=== PATIENT | male | born 1940 | race Caucasian/White ===

== ENCOUNTER 2024-10-31 11:08 | Emergency (ER) | payer MEDICARE ==
[2024-10-31] VITALS (12 sets, daily range): BP systolic 85–148; BP diastolic 54–126
[~2024-10-31] VITALS: Ht 172.7 cm; Wt 86.1 kg
[2024-10-31 13:43] LABS: URINE BLOOD DIPSTICK Large (NEGATIVE); URINE CLARITY Slightly Cloudy; URINE GLUCOSE - DIPSTICK Negative (NEGATIVE); URINE KETONE Negative (NEGATIVE); URINE LEUK ESTERASE Trace (Negative); URINE PROTEIN - DIPSTICK >=300 mg/dL (NEG-TRACE); URINE SPECIFIC GRAVITY 1.025
[2024-10-31 13:51] LABS: URINE COLOR Red; URINE NITRITE - DIPSTICK Positive (Negative)
[2024-10-31 13:55] LABS: URINE RBC >100 RBC/hpf (0-5)
[2024-10-31 13:56] LABS: URINE BACTERIA MODERATE hpf
[2024-10-31] MEDS ORDERED: KEFLEX500 MG PO (14:24)
[2024-11-02] MEDS ORDERED: CIPROFLOXACN250 M1 PO (09:58)
== END 2024-10-31 15:17 | disposition home or self-care (01) ==
LOC: ED 11:08
PROVIDERS: Family Medicine
PROC: 0T2BX0Z Change Drainage Device in Bladder, External Approach (ICD-10-PCS; principal; 2024-10-31)
DX: R31.0 Gross hematuria (principal); N39.0 Urinary tract infection, site not specified; B96.4 Proteus (mirabilis) (morganii) as the cause of diseases classified elsewhere; I10 Essential (primary) hypertension; Z96.0 Presence of urogenital implants; Z86.73 Personal history of transient ischemic attack (TIA), and cerebral infarction without residual deficits

== ENCOUNTER 2024-11-05 09:16 | Emergency (ER) | payer MEDICARE, OTHER ==
[~2024-11-05] VITALS: Ht 172.7 cm; Wt 95.0 kg
[~2024-11-05 09:16] MED LIST: CIPROFLOXACN250 M1 PO; KEFLEX500 MG PO
[2024-11-05 09:34] VITALS: BP 125/73
[2024-11-05] MEDS ORDERED: KETOROLAC TROMETHAMINE 30 MG/ML SDV IV ONE ×2 (09:35→09:45)
[2024-11-05 09:49] VITALS: BP 115/67
[2024-11-05] MEDS ORDERED: KETOROLAC TROMETHAMINE 30 MG/ML SDV IM ONE (09:55)
[2024-11-05 09:58] LABS: BASO% 0.2 % (0-3); EOS% 1.5 % (0-8); HEMATOCRIT 38.6 % (39.0-50.0); HEMOGLOBIN 13.2 g/dl (14.0-18.0); IMMATURE GRANULOCYTES 0.4 % (0.0-5.0); LYMPH% 14.8 % (15-41); MEAN CELL VOLUME 93.2 fL CALC (80.0-100.0); MEAN CORPUSCULAR HGB 31.9 pG CALC (26.0-32.0); MEAN CORPUSCULAR HGB CONC 34.2 g/dL CAL (32.0-36.0); MONO% 10.7 % (2-13); NEUT# 6.2 thou/uL (1.82-7.42); NEUT% 72.4 % (42-76); RED BLOOD COUNT 4.14 mill/uL (4.70-6.10); RED CELL DISTRI WIDTH 13.7 % (11.5-15.5)
[2024-11-05 10:16] LABS: CREATININE 1.6 mg/dL (0.7-1.3); POTASSIUM 3.8 mmol/l (3.5-5.1)
[2024-11-05 10:16] LABS: URINE BILIRUBIN - DIPSTICK Negative (NEGATIVE); URINE BLOOD DIPSTICK Small (NEGATIVE); URINE GLUCOSE - DIPSTICK Negative (NEGATIVE); URINE KETONE Negative (NEGATIVE); URINE LEUK ESTERASE Negative (NEGATIVE); URINE NITRITE - DIPSTICK Negative (Negative); URINE PH 5.5 (4.5-8.0); URINE PROTEIN - DIPSTICK 30 mg/dL (NEG-TRACE); URINE SPECIFIC GRAVITY 1.025; URINE UROBILINOGEN - DIPSTICK 0.2 E.U./dL (0.2)
[2024-11-05 10:17] LABS: URINE COLOR Yellow
[2024-11-05 10:18] LABS: URINE EPITHELIAL CELLS FEW EPI/hpf (0-FEW); URINE MUCUS FEW hpf (NONE-FEW)
[2024-11-05 10:35] VITALS: BP 111/67
[2024-11-05] MEDS ORDERED: METHOCARBAMOL500 MG PO (10:39)
[2024-11-05 10:46] VITALS: BP 111/67
== END 2024-11-05 10:55 | disposition home or self-care (01) ==
LOC: ED 09:16
PROVIDERS: Family Medicine
DX: M54.50 Low back pain, unspecified (principal); I10 Essential (primary) hypertension; Z86.73 Personal history of transient ischemic attack (TIA), and cerebral infarction without residual deficits

== ENCOUNTER 2024-11-15 10:35 | Inpatient (IN) | payer MEDICARE, OTHER ==
[~2024-11-15] VITALS: Ht 172.7 cm; Wt 86.5 kg
[2024-11-15] VITALS (23 sets, daily range): BP systolic 82–149; BP diastolic 49–104
[~2024-11-15 10:35] MED LIST changes: +METHOCARBAMOL500 MG PO
[2024-11-15 11:19] LABS: URINE BLOOD DIPSTICK Moderate (NEGATIVE); URINE GLUCOSE - DIPSTICK Negative (NEGATIVE); URINE KETONE Trace mg/dL (NEGATIVE); URINE PH 5.5 (4.5-8.0); URINE PROTEIN - DIPSTICK >=300 mg/dL (NEG-TRACE); URINE SPECIFIC GRAVITY >=1.030; URINE UROBILINOGEN - DIPSTICK 0.2 E.U./dL (0.2)
[2024-11-15 11:25] LABS: BASO% 0.2 % (0-3); EOS% 1.4 % (0-8); HEMOGLOBIN 13.3 g/dl (14.0-18.0); IMMATURE GRANULOCYTES 0.4 % (0.0-5.0); MEAN CORPUSCULAR HGB 31.6 pG CALC (26.0-32.0); MEAN CORPUSCULAR HGB CONC 31.7 g/dL CAL (32.0-36.0); NEUT# 7.83 thou/uL (1.82-7.42); RED BLOOD COUNT 4.21 mill/uL (4.70-6.10); RED CELL DISTRI WIDTH 13.2 % (11.5-15.5)
[2024-11-15] MEDS ORDERED: SODIUM CHLORIDE 0.9% 1,000 ML IV ONE ×2 (11:25→14:40)
[2024-11-15 11:26] LABS: MEAN CELL VOLUME 99.8 fL CALC (80.0-100.0)
[2024-11-15 11:27] LABS: URINE COLOR Dark yellow; URINE LEUK ESTERASE Small (NEGATIVE); URINE NITRITE - DIPSTICK Positive (Negative)
[2024-11-15 11:30] LABS: URINE BACTERIA FEW hpf
[2024-11-15 11:31] LABS: URINE MUCUS FEW hpf (NONE-FEW)
[2024-11-15 11:32] LABS: URINE HYALINE CAST FEW lpf (NONE-RARE)
[2024-11-15 11:40] LABS: ALBUMIN 4.2 g/dL (3.2-5.0); ALKALINE PHOSPHATASE 91 u/l (38-126); ANION GAP 16 (6-22 (CALC)); BILIRUBIN, TOTAL 1.2 mg/dL (0.2-1.3); BUN 29 mg/dL (8-23); BUN/CREATININE RATIO 15 (12-20 (CALC)); CARBON DIOXIDE 20 mmol/l (22-30); CHLORIDE 110 mmol/l (95-108); CREATININE 1.9 mg/dL (0.7-1.3); ESTIMATED GFR 34 ML/MIN (>=90 (CALC)); POTASSIUM 3.7 mmol/l (3.5-5.1); SGOT/AST 65 u/l (19-48); SODIUM 142 mmol/l (137-146); TOTAL PROTEIN 7.7 g/dL (6.3-8.2)
[2024-11-15] MEDS ORDERED: ALDACTONE25 MG PO (15:44)
[2024-11-15] MEDS ORDERED: BAYER ASPIRIN E81 MG PO (15:45)
[2024-11-15] MEDS ORDERED: GLUCOSAMI11 PO (15:46)
[2024-11-15] MEDS ORDERED: VITAMIN B-121000 MCG PO (15:47)
[2024-11-15] MEDS ORDERED: PROBIOTI3 (15:47)
[2024-11-15] MEDS ORDERED: VITAMIN B-1100 M2 PO (15:48)
[2024-11-15] MEDS ORDERED: ATORVASTATIN CA40 MG PO (15:48)
[2024-11-15] MEDS ORDERED: SODIUM BICARBI650 MG PO (15:49)
[2024-11-15] MEDS ORDERED: TAMSULOSIN0.4 MG PO (15:49)
[2024-11-15] MEDS ORDERED: SODIUM CHLORIDE 0.9% 1,000 ML IV PRN (17:05)
[2024-11-15] MEDS ORDERED: LORazepam 0.5 MG/TAB PO PRN (17:05)
[2024-11-15] MEDS ORDERED: ACETAMINOPHEN 325 MG/TAB PO PRN (17:05)
[2024-11-15] MEDS ORDERED: MAGNESIUM HYDROXIDE 30 ML UDC PO PRN (17:05)
[2024-11-16] VITALS (8 sets, daily range): BP systolic 107–133; BP diastolic 63–82
[2024-11-16] MEDS ORDERED: ASPIRIN EC 81 MG/TAB PO SCH (09:00)
[2024-11-16] MEDS ORDERED: TAMSULOSIN HCL 0.4 MG CAP PO SCH (09:00)
[2024-11-16] MEDS ORDERED: cefTRIAXone SODIUM 2 GM in SODIUM CHLORIDE 0.9% 100 ML IV SCH (12:00)
[2024-11-17] VITALS (8 sets, daily range): BP systolic 105–135; BP diastolic 45–81
[2024-11-17 05:16] LABS: BASO% 0.2 % (0-3); EOS% 2.1 % (0-8); HEMATOCRIT 38.7 % (39.0-50.0); HEMOGLOBIN 12.1 g/dl (14.0-18.0); IMMATURE GRANULOCYTES 0.2 % (0.0-5.0); LYMPH% 16.2 % (15-41); MEAN CELL VOLUME 105.2 fL CALC (80.0-100.0); MEAN CORPUSCULAR HGB 32.9 pG CALC (26.0-32.0); MEAN CORPUSCULAR HGB CONC 31.3 g/dL CAL (32.0-36.0); MONO% 17.4 % (2-13); NEUT# 5.89 thou/uL (1.82-7.42); NEUT% 63.9 % (42-76); RED BLOOD COUNT 3.68 mill/uL (4.70-6.10); RED CELL DISTRI WIDTH 13.2 % (11.5-15.5)
[2024-11-17 05:47] LABS: CREATININE 1.3 mg/dL (0.7-1.3); MAGNESIUM 1.8 mg/dL (1.6-2.3); POTASSIUM 4.1 mmol/l (3.5-5.1)
[2024-11-17 05:49] LABS: ALBUMIN 3.2 g/dL (3.2-5.0); BILIRUBIN, TOTAL 0.7 mg/dL (0.2-1.3); TOTAL PROTEIN 6.1 g/dL (6.3-8.2)
[2024-11-17] MEDS ORDERED: CEFEPIME HYDROCHLORIDE 2 GM in SODIUM CHLORIDE 0.9% 100 ML IV SCH (09:00)
[2024-11-17] MEDS ORDERED: HYDROcodone 5 MG/Acetaminophen 325 MG/COMBO PO PRN (10:10)
[2024-11-18 05:14] VITALS: BP 105/52
[2024-11-18 06:32] VITALS: BP 105/52
[2024-11-18 07:02] LABS: ALBUMIN 2.9 g/dL (3.2-5.0); CREATININE 1.3 mg/dL (0.7-1.3); TOTAL PROTEIN 5.8 g/dL (6.3-8.2)
[2024-11-18 07:08] LABS: BASO% 0.3 % (0-3); EOS% 2.4 % (0-8); HEMOGLOBIN 11.1 g/dl (14.0-18.0); IMMATURE GRANULOCYTES 0.1 % (0.0-5.0); LYMPH% 15.6 % (15-41); MEAN CORPUSCULAR HGB 32.6 pG CALC (26.0-32.0); MEAN CORPUSCULAR HGB CONC 34.3 g/dL CAL (32.0-36.0); MONO% 20.4 % (2-13); NEUT# 4.55 thou/uL (1.82-7.42); NEUT% 61.2 % (42-76); RED BLOOD COUNT 3.41 mill/uL (4.70-6.10)
[2024-11-18 07:11] LABS: HEMATOCRIT 32.4 % (39.0-50.0)
[2024-11-18 07:18] LABS: MAGNESIUM 2.1 mg/dL (1.6-2.3)
[2024-11-18 18:49] VITALS: BP 100/56
[2024-11-18] MEDS ORDERED: IBUPROFEN 600 MG/TAB PO SCH (21:00)
[2024-11-19 04:20] VITALS: BP 101/59
[2024-11-19 06:45] VITALS: BP 119/70
[2024-11-19] MEDS ORDERED: PANTOPRAZOLE SODIUM Sesquihydr 40 MG/TAB PO SCH (09:00)
[2024-11-19 09:02] LABS: BASO% 0.2 % (0-3); EOS% 2.7 % (0-8); HEMATOCRIT 35.5 % (39.0-50.0); HEMOGLOBIN 11.1 g/dl (14.0-18.0); IMMATURE GRANULOCYTES 0.3 % (0.0-5.0); LYMPH% 16.9 % (15-41); MEAN CORPUSCULAR HGB 31.7 pG CALC (26.0-32.0); MEAN CORPUSCULAR HGB CONC 31.3 g/dL CAL (32.0-36.0); MONO% 15.5 % (2-13); NEUT# 4.04 thou/uL (1.82-7.42); NEUT% 64.4 % (42-76); RED BLOOD COUNT 3.5 mill/uL (4.70-6.10); RED CELL DISTRI WIDTH 13.1 % (11.5-15.5)
[2024-11-19 09:15] LABS: MEAN CELL VOLUME 101.4 fL CALC (80.0-100.0)
[2024-11-19 09:22] LABS: ALBUMIN 2.9 g/dL (3.2-5.0); CREATININE 1.3 mg/dL (0.7-1.3); MAGNESIUM 2.1 mg/dL (1.6-2.3); TOTAL PROTEIN 5.8 g/dL (6.3-8.2)
[2024-11-19] MEDS ORDERED: BISACODYL 10 MG SUPP RE PRN (11:00)
[2024-11-19] MEDS ORDERED: LACTATED RINGER'S 1,000 ML IV SCH (17:10)
[2024-11-19 17:44] VITALS: BP 121/52
[2024-11-20 03:51] VITALS: BP 108/43
[2024-11-20 06:07] LABS: BASO% 0.3 % (0-3); EOS% 2.9 % (0-8); HEMATOCRIT 33.7 % (39.0-50.0); HEMOGLOBIN 11.1 g/dl (14.0-18.0); IMMATURE GRANULOCYTES 0.4 % (0.0-5.0); LYMPH% 16.2 % (15-41); MEAN CELL VOLUME 96.6 fL CALC (80.0-100.0); MEAN CORPUSCULAR HGB 31.8 pG CALC (26.0-32.0); MEAN CORPUSCULAR HGB CONC 32.9 g/dL CAL (32.0-36.0); MONO% 18.6 % (2-13); NEUT# 4.17 thou/uL (1.82-7.42); NEUT% 61.6 % (42-76); RED BLOOD COUNT 3.49 mill/uL (4.70-6.10); RED CELL DISTRI WIDTH 13.1 % (11.5-15.5)
[2024-11-20 06:10] LABS: ALBUMIN 2.9 g/dL (3.2-5.0); BILIRUBIN, TOTAL 1.1 mg/dL (0.2-1.3); CREATININE 1.4 mg/dL (0.7-1.3); MAGNESIUM 2.4 mg/dL (1.6-2.3); TOTAL PROTEIN 5.7 g/dL (6.3-8.2)
[2024-11-20 08:02] VITALS: BP 122/59
[2024-11-20 15:40] VITALS: BP 111/60
[2024-11-20 18:35] VITALS: BP 128/66
[2024-11-21 04:09] VITALS: BP 111/50
[2024-11-21 07:00] VITALS: BP 153/51
[2024-11-21] MEDS ORDERED: MIDAZOLAM HCL 2 MG/2 ML VIAL IV PRN (10:35)
[2024-11-21] MEDS ORDERED: CIPROFLOXACN250 M1 PO (11:50)
[2024-11-21] MEDS ORDERED: HYDROCO/APAP1 TA9 PO (11:51)
== END 2024-11-21 15:34 | disposition home health service (06) | DRG 690 ==
LOC: ED 10:35 → ED-I 14:44 → ED 16:07 → MS2 16:08
PROVIDERS: Emergency Medicine; Nurse Practitioner Family; ADMIT Internal Medicine; ATTEND Internal Medicine
DX: N39.0 Urinary tract infection, site not specified (principal); N17.9 Acute kidney failure, unspecified; E87.20 Acidosis, unspecified; F05 Delirium due to known physiological condition; G93.49 Other encephalopathy; E86.0 Dehydration; F03.90 Unspecified dementia, unspecified severity, without behavioral disturbance, psychotic disturbance, mood disturbance, and anxiety; I12.9 Hypertensive chronic kidney disease with stage 1 through stage 4 chronic kidney disease, or unspecified chronic kidney disease; N18.9 Chronic kidney disease, unspecified; R33.9 Retention of urine, unspecified; M51.27 Other intervertebral disc displacement, lumbosacral region; B96.5 Pseudomonas (aeruginosa) (mallei) (pseudomallei) as the cause of diseases classified elsewhere; G62.9 Polyneuropathy, unspecified; D64.9 Anemia, unspecified; Z96.0 Presence of urogenital implants; Z86.73 Personal history of transient ischemic attack (TIA), and cerebral infarction without residual deficits
CPT/HCPCS: J0692; J0696

== ENCOUNTER 2024-11-25 06:39 | Day surgery (SDC) | payer MEDICARE, OTHER ==
[~2024-11-25] VITALS: Ht 172.7 cm; Wt 86.2 kg
[~2024-11-25 06:39] MED LIST changes: +ALDACTONE25 MG PO; +ATORVASTATIN CA40 MG PO; +BAYER ASPIRIN E81 MG PO; +GLUCOSAMI11 PO; +HYDROCO/APAP1 TA9 PO; +PROBIOTI3; +SODIUM BICARBI650 MG PO; +TAMSULOSIN0.4 MG PO; +VITAMIN B-1100 M2 PO; +VITAMIN B-121000 MCG PO
[2024-11-25] MEDS ORDERED: FAMOTIDINE 10MG/ML 2ML SDV IV ONE (07:11)
[2024-11-25] MEDS ORDERED: SODIUM CHLORIDE 0.9% 1,000 ML IV ONE ×2 (07:12→08:55)
[2024-11-25] MEDS ORDERED: Levofloxacin 500 mg Premix 100 ML IV ONE (07:30)
[2024-11-25] MEDS ORDERED: ACETAMINOPHEN 100 ML IV ONE (08:53)
[2024-11-25 09:46] VITALS: BP 113/52
[2024-11-25] MEDS ORDERED: SODIUM CHLORIDE 1,000 ML BTL IR ONE (09:57)
[2024-11-25] MEDS ORDERED: SODIUM CHLORIDE 3,000 ML BAG FOR IRRIGATION IR ONE (09:57)
[2024-11-25] MEDS ORDERED: STERILE WATER FOR IRRIGATION 1,000 ML BTL IR ONE (09:57)
[2024-11-25] MEDS ORDERED: PROPOFOL 200 MG/20 ML VIAL IV ONE (15:04)
[2024-11-25] MEDS ORDERED: LIDOCAINE HCL 2% 2ML SDV IV ONE (15:04)
== END 2024-11-25 10:15 | disposition home or self-care (01) ==
LOC: ORM 06:39
PROVIDERS: ATTEND Urology
PROC: 0VB08ZZ Excision of Prostate, Via Natural or Artificial Opening Endoscopic (ICD-10-PCS; principal; 2024-11-25)
DX: N40.1 Benign prostatic hyperplasia with lower urinary tract symptoms (principal); R33.8 Other retention of urine; N13.8 Other obstructive and reflux uropathy; J43.9 Emphysema, unspecified; N18.31 Chronic kidney disease, stage 3a; I50.9 Heart failure, unspecified; Z86.73 Personal history of transient ischemic attack (TIA), and cerebral infarction without residual deficits
CPT/HCPCS: J0131; J1956

== ENCOUNTER 2024-11-29 16:50 | Inpatient (IN) | payer MEDICARE, OTHER ==
[~2024-11-29] VITALS: Ht 172.7 cm; Wt 83.0 kg
[2024-11-29] VITALS (7 sets, daily range): BP systolic 106–150; BP diastolic 70–114
[2024-11-29 17:24] LABS: BASO% 0.1 % (0-3); EOS% 1.2 % (0-8); HEMATOCRIT 35.1 % (39.0-50.0); HEMOGLOBIN 11.4 g/dl (14.0-18.0); IMMATURE GRANULOCYTES 0.3 % (0.0-5.0); LYMPH% 14.2 % (15-41); MEAN CELL VOLUME 93.9 fL CALC (80.0-100.0); MEAN CORPUSCULAR HGB 30.5 pG CALC (26.0-32.0); MEAN CORPUSCULAR HGB CONC 32.5 g/dL CAL (32.0-36.0); MONO% 14.3 % (2-13); NEUT# 9.05 thou/uL (1.82-7.42); NEUT% 69.9 % (42-76); RED BLOOD COUNT 3.74 mill/uL (4.70-6.10)
[2024-11-29 17:24] LABS: URINE BILIRUBIN - DIPSTICK Negative (NEGATIVE); URINE BLOOD DIPSTICK Moderate (NEGATIVE); URINE COLOR Yellow; URINE GLUCOSE - DIPSTICK Negative (NEGATIVE); URINE KETONE Negative (NEGATIVE); URINE LEUK ESTERASE Trace (NEGATIVE); URINE NITRITE - DIPSTICK Negative (Negative); URINE PROTEIN - DIPSTICK 100 mg/dL (NEG-TRACE); URINE UROBILINOGEN - DIPSTICK 0.2 E.U./dL (0.2)
[2024-11-29 17:25] LABS: URINE RBC 25-50 RBC/hpf (0-5)
[2024-11-29 17:26] LABS: URINE BACTERIA FEW hpf
[2024-11-29 17:28] LABS: ALBUMIN 3.4 g/dL (3.2-5.0); BILIRUBIN, TOTAL 0.7 mg/dL (0.2-1.3); CREATININE 1.3 mg/dL (0.7-1.3); POTASSIUM 4.1 mmol/l (3.5-5.1); TOTAL PROTEIN 6.4 g/dL (6.3-8.2)
[2024-11-29] MEDS ORDERED: LORazepam 2 MG/ML IV ONE (17:50)
[2024-11-29] MEDS ORDERED: MIDAZOLAM HCL 2 MG/2 ML VIAL IV ONE ×3 (18:00→20:00)
[2024-11-29] MEDS ORDERED: ONDANSETRON HCl 4 MG/2 ML SDV IV ONE (19:50)
[2024-11-29] MEDS ORDERED: CLOTRIMAZOLE 1% TOP SCH (22:29)
[2024-11-29] MEDS ORDERED: SODIUM CHLORIDE 0.9% 1,000 ML IV PRN (22:30)
[2024-11-29] MEDS ORDERED: ACETAMINOPHEN 325 MG/TAB PO PRN (22:30)
[2024-11-29] MEDS ORDERED: MAGNESIUM HYDROXIDE 30 ML UDC PO PRN (22:30)
[2024-11-29] MEDS ORDERED: PHENAZOPYRIDINE HCL 100 MG/TAB PO SCH (23:13)
[2024-11-29] MEDS ORDERED: ONDANSETRON HCl 4 MG/2 ML SDV IV PRN (23:15)
[2024-11-29] MEDS ORDERED: MORPHINE SULFATE 4 MG/ML VIAL IV PRN (23:15)
[2024-11-29] MEDS ORDERED: LORazepam 2 MG/ML IV PRN (23:35)
[2024-11-30] VITALS (9 sets, daily range): BP systolic 114–153; BP diastolic 51–118
[2024-11-30 08:12] LABS: BASO% 0.2 % (0-3); EOS% 1.4 % (0-8); HEMOGLOBIN 11.2 g/dl (14.0-18.0); IMMATURE GRANULOCYTES 0.3 % (0.0-5.0); LYMPH% 11.7 % (15-41); MEAN CELL VOLUME 93.2 fL CALC (80.0-100.0); MEAN CORPUSCULAR HGB 30.7 pG CALC (26.0-32.0); MEAN CORPUSCULAR HGB CONC 32.9 g/dL CAL (32.0-36.0); MONO% 13.2 % (2-13); NEUT# 8.1 thou/uL (1.82-7.42); NEUT% 73.2 % (42-76); RED BLOOD COUNT 3.65 mill/uL (4.70-6.10)
[2024-11-30 08:39] LABS: ALBUMIN 3.4 g/dL (3.2-5.0); BILIRUBIN, TOTAL 0.9 mg/dL (0.2-1.3); CREATININE 1.2 mg/dL (0.7-1.3); TOTAL PROTEIN 6.5 g/dL (6.3-8.2)
[2024-11-30] MEDS ORDERED: CEFEPIME HYDROCHLORIDE 1 GM in SODIUM CHLORIDE 0.9% 50 ML IV SCH (09:00)
[2024-11-30] MEDS ORDERED: LACTULOSE 20 GM/30 ML UDC PO PRN (12:15)
[2024-11-30] MEDS ORDERED: TAMSULOSIN HCL 0.4 MG CAP PO SCH (13:00)
[2024-11-30] MEDS ORDERED: ASPIRIN EC 81 MG/TAB PO SCH (13:00)
[2024-11-30] MEDS ORDERED: SPIRONOLACTONE 25 MG/TAB PO SCH (13:00)
[2024-11-30] MEDS ORDERED: ENOXAPARIN SODIUM 40 MG/0.4 ML SYR SC SCH (21:00)
[2024-12-01] VITALS (7 sets, daily range): BP systolic 116–148; BP diastolic 56–80
[2024-12-01 04:40] LABS: BASO% 0.1 % (0-3); EOS% 1.2 % (0-8); HEMATOCRIT 35.6 % (39.0-50.0); HEMOGLOBIN 10.9 g/dl (14.0-18.0); IMMATURE GRANULOCYTES 0.8 % (0.0-5.0); LYMPH% 14.4 % (15-41); MEAN CORPUSCULAR HGB 31.1 pG CALC (26.0-32.0); MEAN CORPUSCULAR HGB CONC 30.6 g/dL CAL (32.0-36.0); MONO% 13.5 % (2-13); NEUT# 7.18 thou/uL (1.82-7.42); RED BLOOD COUNT 3.51 mill/uL (4.70-6.10); RED CELL DISTRI WIDTH 13.3 % (11.5-15.5)
[2024-12-01 04:57] LABS: ALBUMIN 3.2 g/dL (3.2-5.0); BILIRUBIN, TOTAL 0.8 mg/dL (0.2-1.3); CREATININE 1.3 mg/dL (0.7-1.3); MAGNESIUM 2.3 mg/dL (1.6-2.3); POTASSIUM 4.5 mmol/l (3.5-5.1); TOTAL PROTEIN 6.2 g/dL (6.3-8.2)
[2024-12-01 05:02] LABS: MEAN CELL VOLUME 101.4 fL CALC (80.0-100.0)
[2024-12-01] MEDS ORDERED: LACTULOSE 20 GM/30 ML UDC PO SCH (11:00)
[2024-12-02 04:05] VITALS: BP 138/82
[2024-12-02 05:41] LABS: BASO% 0.2 % (0-3); EOS% 1.2 % (0-8); HEMOGLOBIN 10.9 g/dl (14.0-18.0); IMMATURE GRANULOCYTES 0.3 % (0.0-5.0); LYMPH% 12.6 % (15-41); MEAN CELL VOLUME 95.4 fL CALC (80.0-100.0); MEAN CORPUSCULAR HGB 31.5 pG CALC (26.0-32.0); MONO% 14.2 % (2-13); NEUT# 7.61 thou/uL (1.82-7.42); NEUT% 71.5 % (42-76); RED BLOOD COUNT 3.46 mill/uL (4.70-6.10); RED CELL DISTRI WIDTH 12.9 % (11.5-15.5)
[2024-12-02 05:50] VITALS: BP 110/85
[2024-12-02 05:51] LABS: ALBUMIN 3.1 g/dL (3.2-5.0); BILIRUBIN, TOTAL 0.9 mg/dL (0.2-1.3); CREATININE 1.2 mg/dL (0.7-1.3); MAGNESIUM 2.4 mg/dL (1.6-2.3); POTASSIUM 4.3 mmol/l (3.5-5.1); TOTAL PROTEIN 6.1 g/dL (6.3-8.2)
[2024-12-02] MEDS ORDERED: methylPREDNISolone ACETATE 40 MG/ML VIAL IJ ONE (08:50)
[2024-12-02] MEDS ORDERED: LIDOcaine HCl 1% (Local Anesth.) 20 ML VIAL STI SCH (09:10)
[2024-12-02 10:14] VITALS: BP 143/70
[2024-12-02] MEDS ORDERED: ACETAMINOPHEN 500 MG TAB PO SCH (12:00)
[2024-12-02 16:46] VITALS: BP 120/72
[2024-12-02 19:24] VITALS: BP 126/79
[2024-12-03 05:42] VITALS: BP 123/74
[2024-12-03 07:00] VITALS: BP 111/77
[2024-12-03 09:47] LABS: BASO% 0.1 % (0-3); EOS% 0.4 % (0-8); HEMATOCRIT 36.4 % (39.0-50.0); HEMOGLOBIN 11.6 g/dl (14.0-18.0); IMMATURE GRANULOCYTES 0.3 % (0.0-5.0); LYMPH% 12.9 % (15-41); MEAN CELL VOLUME 96.3 fL CALC (80.0-100.0); MEAN CORPUSCULAR HGB 30.7 pG CALC (26.0-32.0); MEAN CORPUSCULAR HGB CONC 31.9 g/dL CAL (32.0-36.0); MONO% 11.5 % (2-13); NEUT# 8.76 thou/uL (1.82-7.42); NEUT% 74.8 % (42-76); RED BLOOD COUNT 3.78 mill/uL (4.70-6.10); RED CELL DISTRI WIDTH 12.8 % (11.5-15.5)
[2024-12-03 09:54] LABS: ALBUMIN 3.2 g/dL (3.2-5.0); BILIRUBIN, TOTAL 0.9 mg/dL (0.2-1.3); MAGNESIUM 2.5 mg/dL (1.6-2.3); POTASSIUM 4.3 mmol/l (3.5-5.1); TOTAL PROTEIN 6.5 g/dL (6.3-8.2)
[2024-12-03] MEDS ORDERED: predniSONE 10 MG/TAB PO SCH (13:00)
[2024-12-03 16:00] VITALS: BP 104/50
[2024-12-03 16:03] VITALS: BP 104/50
[2024-12-03 20:27] VITALS: BP 137/51
[2024-12-03] MEDS ORDERED: GABAPENTIN 100 MG/CAP PO SCH (21:00)
[2024-12-04 04:24] VITALS: BP 134/99
[2024-12-04 05:20] LABS: HEMATOCRIT 32.9 % (39.0-50.0); HEMOGLOBIN 10.6 g/dl (14.0-18.0); MEAN CELL VOLUME 95.1 fL CALC (80.0-100.0); MEAN CORPUSCULAR HGB 30.6 pG CALC (26.0-32.0); MEAN CORPUSCULAR HGB CONC 32.2 g/dL CAL (32.0-36.0); RED BLOOD COUNT 3.46 mill/uL (4.70-6.10)
[2024-12-04 05:27] LABS: ALBUMIN 2.9 g/dL (3.2-5.0); BILIRUBIN, TOTAL 0.6 mg/dL (0.2-1.3); CREATININE 1.2 mg/dL (0.7-1.3); MAGNESIUM 2.6 mg/dL (1.6-2.3); POTASSIUM 4.7 mmol/l (3.5-5.1); TOTAL PROTEIN 5.9 g/dL (6.3-8.2)
[2024-12-04 06:55] VITALS: BP 118/64
[2024-12-04 07:00] VITALS: BP 118/64
[2024-12-04] MEDS ORDERED: ATIVAN0.5 MG PO (09:36)
[2024-12-04] MEDS ORDERED: GABAPENTIN100 MG PO (09:36)
[2024-12-04] MEDS ORDERED: HYDROCO/APAP1 TA9 PO (09:36)
[2024-12-04] MEDS ORDERED: PREDNISONE10 MG PO (09:36)
== END 2024-12-04 11:00 | DRG 690 ==
LOC: ED 16:50 → MS2 22:26
PROVIDERS: Family Medicine; Nurse Practitioner Family; ADMIT Internal Medicine; ATTEND Internal Medicine
PROC: 3E0U33Z Introduction of Anti-inflammatory into Joints, Percutaneous Approach (ICD-10-PCS; principal; 2024-12-02)
DX: N39.0 Urinary tract infection, site not specified (principal); F03.911 Unspecified dementia, unspecified severity, with agitation; N48.1 Balanitis; I12.9 Hypertensive chronic kidney disease with stage 1 through stage 4 chronic kidney disease, or unspecified chronic kidney disease; N18.9 Chronic kidney disease, unspecified; K59.00 Constipation, unspecified; N40.1 Benign prostatic hyperplasia with lower urinary tract symptoms; R33.8 Other retention of urine; M35.3 Polymyalgia rheumatica; M70.61 Trochanteric bursitis, right hip; B96.5 Pseudomonas (aeruginosa) (mallei) (pseudomallei) as the cause of diseases classified elsewhere; Z86.73 Personal history of transient ischemic attack (TIA), and cerebral infarction without residual deficits; Z96.0 Presence of urogenital implants; Z98.890 Other specified postprocedural states
CPT/HCPCS: J0692; J0696; J1650; J2405

== ENCOUNTER 2024-12-14 14:58 | Emergency (ER) | payer MEDICARE, OTHER ==
[~2024-12-14] VITALS: Ht 172.7 cm; Wt 58.0 kg
[2024-12-14] VITALS (8 sets, daily range): BP systolic 99–128; BP diastolic 44–93
[~2024-12-14 14:58] MED LIST changes: +ATIVAN0.5 MG PO; +GABAPENTIN100 MG PO; +PREDNISONE10 MG PO
[2024-12-14] MEDS ORDERED: HYDROcodone/Acetaminophen 1 COMBO TAB PO ONE (15:15)
[2024-12-14 16:08] LABS: EOS% 0.1 % (0-8); IMMATURE GRANULOCYTES 0.6 % (0.0-5.0); LYMPH% 6.5 % (15-41); MEAN CELL VOLUME 94.9 fL CALC (80.0-100.0); MEAN CORPUSCULAR HGB 29.8 pG CALC (26.0-32.0); MEAN CORPUSCULAR HGB CONC 31.4 g/dL CAL (32.0-36.0); MONO% 5.9 % (2-13); NEUT# 13.21 thou/uL (1.82-7.42); NEUT% 86.9 % (42-76); RED BLOOD COUNT 4.73 mill/uL (4.70-6.10); RED CELL DISTRI WIDTH 14.1 % (11.5-15.5)
[2024-12-14 16:09] LABS: HEMATOCRIT 44.9 % (39.0-50.0); HEMOGLOBIN 14.1 g/dl (14.0-18.0)
[2024-12-14 16:21] LABS: BILIRUBIN, TOTAL 0.8 mg/dL (0.2-1.3); CREATININE 1.7 mg/dL (0.7-1.3); POTASSIUM 4.1 mmol/l (3.5-5.1)
[2024-12-14 16:23] LABS: ALBUMIN 4.4 g/dL (3.2-5.0); TOTAL PROTEIN 8.4 g/dL (6.3-8.2)
[2024-12-14 16:52] LABS: URINE BILIRUBIN - DIPSTICK Negative (NEGATIVE); URINE BLOOD DIPSTICK Large (NEGATIVE); URINE GLUCOSE - DIPSTICK Negative (NEGATIVE); URINE KETONE Trace mg/dL (NEGATIVE); URINE PH 5.5 (4.5-8.0); URINE PROTEIN - DIPSTICK 100 mg/dL (NEG-TRACE); URINE SPECIFIC GRAVITY >=1.030; URINE UROBILINOGEN - DIPSTICK 0.2 E.U./dL (0.2)
[2024-12-14 16:59] LABS: URINE COLOR Yellow; URINE LEUK ESTERASE Small (NEGATIVE); URINE NITRITE - DIPSTICK Positive (Negative)
[2024-12-14 17:01] LABS: URINE WBC >100 WBC/hpf (0-5)
[2024-12-14 17:02] LABS: URINE BACTERIA MANY hpf; URINE YEAST MODERATE hpf
[2024-12-14] MEDS ORDERED: CEFEPIME HYDROCHLORIDE 2 GM in SODIUM CHLORIDE 0.9% 100 ML IV ONE (17:10)
[2024-12-14] MEDS ORDERED: MIDAZOLAM HCL 2 MG/2 ML VIAL IV ONE ×3 (17:40→18:30)
[2024-12-14] MEDS ORDERED: MIDAZOLAM HCL 2 MG/2 ML VIAL ONE (17:46)
[2024-12-14] MEDS ORDERED: CEPHALEXIN500 M1 PO (19:05)
== END 2024-12-14 19:05 ==
LOC: ED 14:58
PROVIDERS: Family Medicine
DX: N39.0 Urinary tract infection, site not specified (principal); B95.2 Enterococcus as the cause of diseases classified elsewhere; R09.02 Hypoxemia; I12.9 Hypertensive chronic kidney disease with stage 1 through stage 4 chronic kidney disease, or unspecified chronic kidney disease; N18.9 Chronic kidney disease, unspecified; Z86.73 Personal history of transient ischemic attack (TIA), and cerebral infarction without residual deficits; F03.911 Unspecified dementia, unspecified severity, with agitation; Z96.0 Presence of urogenital implants; Z98.890 Other specified postprocedural states; Z66 Do not resuscitate
CPT/HCPCS: J0692

== ENCOUNTER 2024-12-16 12:26 | Observation (INO) | payer MEDICARE, OTHER ==
[2024-12-16] VITALS (31 sets, daily range): BP systolic 62–169; BP diastolic 43–133
[~2024-12-16] VITALS: Ht 172.7 cm; Wt 81.2 kg
[~2024-12-16 12:26] MED LIST changes: +CEPHALEXIN500 M1 PO
[2024-12-16] MEDS ORDERED: MIDAZOLAM HCL 2 MG/2 ML VIAL IV ONE (12:50)
[2024-12-16 13:05] LABS: BASO% 0.1 % (0-3); EOS% 0.1 % (0-8); HEMATOCRIT 45.8 % (39.0-50.0); HEMOGLOBIN 14.6 g/dl (14.0-18.0); IMMATURE GRANULOCYTES 0.6 % (0.0-5.0); LYMPH% 6.9 % (15-41); MEAN CELL VOLUME 94.6 fL CALC (80.0-100.0); MEAN CORPUSCULAR HGB 30.2 pG CALC (26.0-32.0); MEAN CORPUSCULAR HGB CONC 31.9 g/dL CAL (32.0-36.0); MONO% 8.2 % (2-13); NEUT# 14.95 thou/uL (1.82-7.42); NEUT% 84.1 % (42-76); RED BLOOD COUNT 4.84 mill/uL (4.70-6.10); RED CELL DISTRI WIDTH 14.1 % (11.5-15.5)
[2024-12-16 13:18] LABS: ALBUMIN 4.1 g/dL (3.2-5.0); CREATININE 1.6 mg/dL (0.7-1.3); TOTAL PROTEIN 7.6 g/dL (6.3-8.2)
[2024-12-16 13:19] LABS: POTASSIUM 5.1 mmol/l (3.5-5.1)
[2024-12-16] MEDS ORDERED: Heparin SODIUM (Porcine) 500 ML IV ONE (13:30)
[2024-12-16] MEDS ORDERED: Heparin SODIUM (Porcine) 5,000 UNITS/ML SDV IV ONE (13:30)
[2024-12-16] MEDS ORDERED: AZITHROMYCIN 500 MG in SODIUM CHLORIDE 0.9% 500 ML IV ONE (14:35)
[2024-12-16] MEDS ORDERED: cefTRIAXone SODIUM 2 GM in SODIUM CHLORIDE 0.9% 100 ML IV ONE (14:35)
[2024-12-16] MEDS ORDERED: methylPREDNISolone SODIUM SUCC 125 MG/2 ML SDV IV ONE (14:35)
[2024-12-16] MEDS ORDERED: LOVENOX40 MG/0.4 SC (14:57)
[2024-12-16] MEDS ORDERED: SEROQUEL25 MG PO (14:59)
[2024-12-16] MEDS ORDERED: VITAMIN B-1100 M2 PO (15:00)
[2024-12-16] MEDS ORDERED: DEPAKOTE125 MG PO (15:01)
[2024-12-16] MEDS ORDERED: NEURONTIN100 MG PO (15:02)
[2024-12-16] MEDS ORDERED: SENNA/DSS1 TAB PO (15:03)
[2024-12-16] MEDS ORDERED: KEFLEX500 MG PO (15:03)
[2024-12-16] MEDS ORDERED: MAGNESIUM HYDROXIDE 30 ML UDC PO PRN (16:35)
[2024-12-16] MEDS ORDERED: ACETAMINOPHEN 325 MG/TAB PO PRN (16:35)
[2024-12-16] MEDS ORDERED: SODIUM CHLORIDE 0.9% 1,000 ML IV PRN (16:35)
[2024-12-16] MEDS ORDERED: HYDROcodone 5 MG/Acetaminophen 325 MG/COMBO PO PRN (16:40)
[2024-12-16] MEDS ORDERED: PIPERACILLIN Sodium-Tazobactam 3.375 GM in SODIUM CHLORIDE 0.9% 100 ML IV SCH (18:00)
[2024-12-16] MEDS ORDERED: QUEtiapine FUMERATE 25 MG/TAB PO SCH (21:00)
[2024-12-16] MEDS ORDERED: VALPROATE SODIUM 250 MG/5 ML SYRUP PO SCH (21:00)
[2024-12-16] MEDS ORDERED: ENOXAPARIN SODIUM 40 MG/0.4 ML SYR SC SCH (21:00)
[2024-12-16] MEDS ORDERED: methylPREDNISolone Sod Succ 40 MG/ML SDV IV SCH (22:00)
[2024-12-17] VITALS (33 sets, daily range): BP systolic 42–173; BP diastolic 23–150
[2024-12-17 04:46] LABS: HEMATOCRIT 40.8 % (39.0-50.0); MEAN CORPUSCULAR HGB 30.2 pG CALC (26.0-32.0); MEAN CORPUSCULAR HGB CONC 29.4 g/dL CAL (32.0-36.0); RED BLOOD COUNT 3.97 mill/uL (4.70-6.10); RED CELL DISTRI WIDTH 14.9 % (11.5-15.5)
[2024-12-17 04:48] LABS: MEAN CELL VOLUME 102.8 fL CALC (80.0-100.0)
[2024-12-17 05:15] LABS: BILIRUBIN, TOTAL 0.8 mg/dL (0.2-1.3); CREATININE 1.4 mg/dL (0.7-1.3); MAGNESIUM 2.3 mg/dL (1.6-2.3); POTASSIUM 4.7 mmol/l (3.5-5.1); TOTAL PROTEIN 6.4 g/dL (6.3-8.2)
[2024-12-17 05:21] LABS: ALBUMIN 3.2 g/dL (3.2-5.0)
[2024-12-17] MEDS ORDERED: TAMSULOSIN HCL 0.4 MG CAP PO SCH (09:00)
[2024-12-18] VITALS (10 sets, daily range): BP systolic 113–135; BP diastolic 62–81
[2024-12-18 05:36] LABS: HEMATOCRIT 41.4 % (39.0-50.0); HEMOGLOBIN 12.8 g/dl (14.0-18.0); MEAN CELL VOLUME 99.5 fL CALC (80.0-100.0); MEAN CORPUSCULAR HGB 30.8 pG CALC (26.0-32.0); MEAN CORPUSCULAR HGB CONC 30.9 g/dL CAL (32.0-36.0); RED BLOOD COUNT 4.16 mill/uL (4.70-6.10); RED CELL DISTRI WIDTH 14.3 % (11.5-15.5)
[2024-12-18 05:56] LABS: ALBUMIN 3.3 g/dL (3.2-5.0); BILIRUBIN, TOTAL 0.6 mg/dL (0.2-1.3); CREATININE 1.7 mg/dL (0.7-1.3); MAGNESIUM 2.5 mg/dL (1.6-2.3); POTASSIUM 4.6 mmol/l (3.5-5.1); TOTAL PROTEIN 6.4 g/dL (6.3-8.2)
[2024-12-18] MEDS ORDERED: PREDNISONE10 MG PO (09:25)
== END 2024-12-18 11:30 ==
LOC: ED 12:26 → ED-I 14:20 → ED 15:22 → ED-I 15:23 → ICU 21:38
PROVIDERS: Family Medicine; ADMIT Internal Medicine; ATTEND Internal Medicine
DX: R06.02 Shortness of breath (principal); N39.0 Urinary tract infection, site not specified; B95.2 Enterococcus as the cause of diseases classified elsewhere; I12.9 Hypertensive chronic kidney disease with stage 1 through stage 4 chronic kidney disease, or unspecified chronic kidney disease; N18.9 Chronic kidney disease, unspecified; J43.9 Emphysema, unspecified; F03.911 Unspecified dementia, unspecified severity, with agitation; R33.9 Retention of urine, unspecified; M35.3 Polymyalgia rheumatica; Z87.440 Personal history of urinary (tract) infections; Z78.1 Physical restraint status; Z86.73 Personal history of transient ischemic attack (TIA), and cerebral infarction without residual deficits; Z96.0 Presence of urogenital implants
CPT/HCPCS: J0456; J0696; J1644; J1650; J2359; J2543; Q9967